=== PATIENT | female | born 1945 | race Hispanic/Latino ===

== ENCOUNTER 2018-07-07 09:20 | Inpatient (IN) ==
[2018-06-26 11:37] LABS: Basophils # (Auto) 0 K/mcL (0.0-0.3); Basophils % (Auto) 0.7 % (0.0-2.0); Eosinophils # (Auto) 0.1 K/mcL (0.0-0.7); Eosinophils % (Auto) 2.2 % (0.0-7.0); Granulocytes % (Auto) 63.8 % (38.0-78.0); Lymphocytes # (Auto) 1.6 K/mcL (1.5-4.8); Lymphocytes % (Auto) 26.2 % (15.5-49.0); Mean Cell Volume 93.8 fL (80.0-100.0); Mean Corpuscular HGB Conc 34.1 g/dL (31.0-36.0); Monocytes # (Auto) 0.4 K/mcL (0.1-0.9); Monocytes % (Auto) 7.1 % (1.0-12.0); Platelet Count 259 K/mcL (140-440); RBC 4.12 M/mcL (4.00-5.20); Red Cell Distribution Width 12.7 % (11.5-14.5)
[2018-06-26 12:14] LABS: Blood Urea Nitrogen 14 mg/dl (8-23)
[2018-06-26 12:43] LABS: Appearance,Urine CLEAR; Bacteria,Urine 0 /hpf (0); Bilirubin,Urine NEG (NEG); Color,Urine COLORLESS; Glucose,Urine (UA) NEGATIVE (NEG); Leukocyte Esterase,Urine NEG /uL (NEG); Protein,Urine NEG (NEG); Specific Gravity,Urine 1.004 (1.000-1.035); Urine Blood 0.03 mg/dL (<0.03); Urine RBC < 1 /hpf (0-1); Urine Squamous Epithelial Cell < 1 /hpf (0-4); Urine Transitional Epi Cells < 1 /hpf (0-2); Urine WBC 1 /hpf (0-4); Urobilinogen,Urine NEG (NEG)
[~2018-07-07 09:20] MED LIST: ACETAMINOPHEN 500 MG TABLET PO SCH; CELECOXIB 200 MG CAPSULE PO SCH; PREGABALIN 75 MG CAPSULE PO SCH; ceFAZolin 1 GM VIAL IV SCH; oxyCODONE 10 MG TAB.ER.12H PO SCH
[2018-07-07] MEDS ORDERED: ROPIVACAINE HCL/PF 20 ML VIAL IJ ONE (11:35)
[2018-07-07] MEDS ORDERED: ONDANSETRON 4 MG/2 ML VIAL IV ONE (11:35)
[2018-07-07] MEDS ORDERED: TRANEXAMIC ACID 1,000 MG/10 ML VIAL IV ONE ×3 (11:35→14:16)
[2018-07-07] MEDS ORDERED: LIDOCAINE HCL/PF 100 MG/5 ML SYRINGE IV ONE (11:35)
[2018-07-07] MEDS ORDERED: PROPOFOL 200 MG/20 ML VIAL IV ONE (11:35)
[2018-07-07] MEDS ORDERED: fentaNYL 250 MCG/5 ML VIAL IV ONE (11:35)
[2018-07-07] MEDS ORDERED: DEXAMETHASONE 10 MG/ML VIAL IV ONE (11:35)
[2018-07-07] MEDS ORDERED: MIDAZOLAM 5 MG/5 ML VIAL IV ONE (11:35)
[2018-07-07] MEDS ORDERED: GENTAMICIN SULFATE 800 MG/20 ML VIAL IR ONE (12:03)
[2018-07-07] MEDS ORDERED: METOPROLOL TARTRATE 5 MG/5 ML VIAL IV PRN (12:51)
[2018-07-07] MEDS ORDERED: MEPERIDINE 25 MG/ML SYRINGE IV PRN (12:51)
[2018-07-07] MEDS ORDERED: PROMETHAZINE 25 MG/ML VIAL IV PRN (12:51)
[2018-07-07] MEDS ORDERED: IPRATROPIUM/ALBUTEROL 3 ML AMPUL.NEB NEB PRN (12:51)
[2018-07-07] MEDS ORDERED: ATROPINE SULFATE 0.4 MG/ML VIAL IV PRN (12:51)
[2018-07-07] MEDS ORDERED: NALOXONE HCL 0.4 MG/ML VIAL IV PRN (12:51)
[2018-07-07] MEDS ORDERED: ONDANSETRON 4 MG/2 ML VIAL IV PRN ×2 (12:51→13:59)
[2018-07-07] MEDS ORDERED: METHOCARBAMOL 1,000 MG/10 ML VIAL IV PRN (12:51)
[2018-07-07] MEDS ORDERED: ePHEDrine 50 MG/ML AMPUL IV PRN (12:51)
[2018-07-07] MEDS ORDERED: HYDROmorphone 2 MG/ML VIAL IV PRN ×2 (12:51→13:59)
[2018-07-07] MEDS ORDERED: FLUMAZENIL 0.1 MG/ML ML IV PRN (12:51)
[2018-07-07] MEDS ORDERED: diphenhydrAMINE 50 MG/ML VIAL IV PRN (12:51)
[2018-07-07] MEDS ORDERED: LACTATED RINGERS 1,000 ML IV SCH (13:00)
[2018-07-07] MEDS: fentaNYL 100 MCG/2 ML VIAL IV PRN ×3 (13:56→14:08)
--- NOTE | 2018-07-07 13:57 | Brief Operative Note ---
Date of procedure: 07/07/18 Pre-op diagnosis: left shoulder djd severe Post-op diagnosis: same Procedure: left tsa and bicep tenodesis Grafts/Implants: Yes Anesthesia: GETA Complications: none Surgeon: Vinay Bello Bond Underwriter: Michael Ramirez Estimated blood loss (cc): 101 Specimens Removed/Pathology: none sent Condition: stable Disposition: PACU
[2018-07-07] MEDS ORDERED: MAGNESIUM HYDROXIDE 30 ML ORAL.SUSP PO PRN (13:59)
[2018-07-07] MEDS ORDERED: FLEETS ADULT ENEMA PR PRN (13:59)
[2018-07-07] MEDS ORDERED: POLYETHYLENE GLYCOL 3350 17 GM PACKET PO PRN (13:59)
[2018-07-07] MEDS ORDERED: ACETAMINOPHEN 325 MG TABLET PO PRN (13:59)
[2018-07-07] MEDS ORDERED: BENZOCAINE/MENTHOL 1 LOZENGE PO PRN (13:59)
[2018-07-07] MEDS ORDERED: BISACODYL 10 MG SUPP.RECT PR PRN (13:59)
[2018-07-07] MEDS ORDERED: KETOROLAC 15 MG/ML VIAL IV PRN (13:59)
[2018-07-07] MEDS ORDERED: TRANEXAMIC ACID 1,000 MG/10 ML VIAL IV SCH (14:45)
--- NOTE | 2018-07-07 14:58 | XRay Report ---
CLINICAL INFORMATION: post-op COMPARISON: None. FINDINGS: Left shoulder prostheses is anatomically aligned. No osseous normality. Soft tissues swelling seen as expected IMPRESSION: Negative Interpreted and Authenticated by: Bishnu Jimenez 07/07/18
--- NOTE | 2018-07-07 15:02 | Operative Note ---
DATE OF OPERATION: 07/07/2018 PREOPERATIVE DIAGNOSIS: Left shoulder, left shoulder arthritis, severe with biceps tendinopathy. POSTOPERATIVE DIAGNOSIS: Left shoulder, left shoulder arthritis, severe with biceps tendinopathy post. PROCEDURE: Left total shoulder arthroplasty with biceps tenodesis. SURGEON: Vinay Bello MD PLANER TAILER: Michael Ramirez PA-C ANESTHESIA: General LMA anesthesia. COMPLICATIONS: None. ESTIMATED BLOOD LOSS: About 100 mL IMPLANTS: A 13 humeral stem, cementless as well as a 44 mm glenoid and 44 mm humeral head. DESCRIPTION OF PROCEDURE: The patient was brought to the operating room and put to sleep with general anesthesia. Once asleep, the patient had the left shoulder sterilely prepped and draped in the usual sterile fashion. Ioban was placed over the skin and isolated it from the operative field and sat in a beach chair position. A timeout was performed to confirm the operative site. Preop antibiotics and tranexamic acid had been given. Once done, we then made a deltopectoral approach in the shoulder. This was a 4 inch incision anteriorly. The deltoid was retracted laterally. Once done, we then brought in and retracted the conjoint tendon medially, used a Dunlap retractor to retract the deltoid. I then released the bicipital groove. I harvested the biceps tendon with a large spur within the groove. This was harvested and repaired to the pec major by roughening the bone and [id number] stitches using FiberWire. Once done we completed the repair of the biceps tendon. I used an osteotome to remove the muscle attachment. This was released as well as the interval. This was retracted medially with a suture. Once released, we then dislocated the humeral head and removed osteophytes around the humeral head. We made our cut at 135 degrees using the patient's anatomy. Once done, we irrigated thoroughly and then subluxed the head posteriorly. We then performed a 360 degree capsular release and released the remnants of the biceps tendon, placed a hole centrally in the glenoid and used a 44 mm glenoid. This seemed to fit very nicely. We irrigated thoroughly and then once done, we reamed up to the size for 44 and implanted the 44 baseplate with a small amount of cement within the glenoid. This was tapped into place. Excellent fixation was achieved after predrilling the holes. Once done, we then prepared the humeral head. This humeral head was then broached up to size 13. We trialed the size 13 with a standard 18 mm the best size was the 18 mm thick humeral head. The 21 seemed to be too tight with less than 50% translation after reattaching the subscap. With this test we went back to smaller, the 18 mm thickness and this was repaired, positioned on the final implant. The final stem, which was a 13 stem was impacted into this humerus. This was in 30 degrees of retroversion. Once done, we irrigated thoroughly and then prepared the bony fragment. The humeral head was 18 mm thick, 44 mm in diameter. This was impacted into place and the subscap was then repaired through drill holes and passing through the tendinous portion we were able to repair this back to the bone and repaired the interval. Once done, we irrigated thoroughly and this gave an excellent repair. We had 4 sutures through the bone that were passed through the tendinous portion that held this into position. The patient tolerated this well. No complications. This seemed to repair very nicely and gave excellent fixation. We irrigated thoroughly and closed the interval with absorbable #1 suture which was Stratafix and then closed the skin with 2-0 Vicryl and adhesive closure. The patient tolerated this well. A DonJoy sling was fitted and given to the patient. RBH:tr Job ID: [id number] Doc ID: [id number] Vinay Bello MD
[2018-07-07] MEDS: 0.45 % SODIUM CHLORIDE 1,000 ML IV SCH (16:50)
[2018-07-07] MEDS: 0.9 % SODIUM CHLORIDE 10 ML SYRINGE IV SCH ×2 (16:50→21:27)
[2018-07-07] MEDS: HYDROcodone/APAP 10/325MG TABLET PO PRN ×2 (17:13→21:32)
[2018-07-07] MEDS: ceFAZolin 1 GM VIAL IV SCH (18:50)
[2018-07-07] MEDS ORDERED: TEMAZEPAM 15 MG CAPSULE PO PRN (21:00)
[2018-07-07] MEDS ORDERED: SENNOSIDES 1 TABLET PO SCH (21:00)
[2018-07-07] MEDS: DOCUSATE SODIUM 100 MG CAPSULE PO SCH (21:26)
[2018-07-08] MEDS: 0.9 % SODIUM CHLORIDE 10 ML SYRINGE IV SCH (02:50)
[2018-07-08] MEDS: ceFAZolin 1 GM VIAL IV SCH (03:05)
[2018-07-08] MEDS: 0.45 % SODIUM CHLORIDE 1,000 ML IV SCH ×2 (04:54)
[2018-07-08] MEDS: HYDROcodone/APAP 10/325MG TABLET PO PRN (05:25)
--- NOTE | 2018-07-08 07:32 | Orthopedic Progress Note ---
Subjective Patient information: Note initiated : 07/08/18 at 7:31 am Service Date, if different from initiated Date: [] Patient: Eli Matthews 73 y/o F admitted on 07/07/18 for Left Total Shoulder Arthroplasty with . Chief Complaint: [Pt is stable this morning on post operative day 1 without any significant concerns or complaints. Patients vital signs have remained stable. Patients dressing is dry and is grossly intact from a neurovascular and motor standpoint. Patients 10 point ROS is otherwise negative. ] Objective Vital signs: Vital Signs Temp Pulse Resp BP BP Pulse Ox 07/08/18 06:43 97.4 F 84 16 134/79 96 07/08/18 03:12 97.5 F 80 14 129/73 94 07/08/18 00:00 97.4 F 81 14 131/80 94 07/07/18 20:06 97.4 F 87 14 120/75 94 07/07/18 17:13 152/84 99 07/07/18 16:13 138/81 99 07/07/18 16:00 159/82 100 07/07/18 15:43 144/82 97 07/07/18 14:44 154/84 100 07/07/18 14:32 157/74 98 07/07/18 14:30 81 07/07/18 14:21 97.6 F 81 14 155/85 99 07/07/18 14:11 78 15 149/74 100 07/07/18 13:56 97.2 F 80 15 138/82 100 07/07/18 13:51 82 16 139/76 100 07/07/18 13:46 71 16 136/69 100 07/07/18 13:41 96.5 F L 72 18 136/87 100 07/07/18 11:11 101/53 95 07/07/18 10:55 101/53 95 07/07/18 10:40 93/57 93 07/07/18 10:25 88/55 93 07/07/18 10:11 88/53 91 07/07/18 10:00 98.1 F 86 18 133/81 97 Intake and Output 07/07/18 07/08/18 07/08/18 21:59 05:59 13:59 Intake Total 650 / 650 1550 / 1550 Output Total 1350 / 1350 700 / 700 Balance -700 / -700 850 / 850 Intake: IV 1000 / 1000 Sodium Chloride 0.45% 1,000 ml 1000 / 1000 @ 100 mls/hr IV .Q10H STEVE Rx#: [id number] Oral 650 / 650 550 / 550 Output: Void Amount 1350 / 1350 700 / 700 Other: Urine Appearance Clear Clear Urine Color Bright Yellow Straw Urine Odor Normal Normal # Voids 1 Weight 177 lb 8 oz Intake & Output: Intake & Output 07/07/18 07/08/18 07/08/18 21:59 05:59 13:59 Intake Total 650 / 650 1550 / 1550 Output Total 1350 / 1350 700 / 700 Balance -700 / -700 850 / 850 Weight 177 lb 8 oz Intake: IV 1000 / 1000 Sodium Chloride 0.45% 1,000 ml 1000 / 1000 @ 100 mls/hr IV .Q10H STEVE Rx#: [id number] Oral 650 / 650 550 / 550 Output: Void Amount 1350 / 1350 700 / 700 Other: Urine Appearance Clear Clear Urine Color Bright Yellow Straw Urine Odor Normal Normal # Voids 1 Incision: Yes healing Incision clean and dry: Yes Dressing: Yes clean Weight bearing status: full Neurological exam IM: Yes motor sensory intact, Yes neurovascular intact Extremities exam IM: Yes neurovascular intact - Labs CBC & BMP: 06/26/18 09:32 06/26/18 09:32 Labs: 06/26/18 09:32 Hgb 13.2 Hct 38.7 Assessment and Plan (1) History of reverse total replacement of left shoulder joint The patient has been educated regarding dressing care, Physical Therapy recommendations, home exercises, restrictions, and follow up appointments. The patient has had all necessary DME prescribed. The patient has remained relatively stable during their hospital course.Leave Dermabond patch intact until followup Status: Acute
--- NOTE | 2018-07-08 07:34 | Discharge Summary ---
Ortho Discharge - TSA - Patient Instructions Diet: Regular Diet Activity: activity as tolerated, weight bearing as tolerated Total Shoulder Protocol: Leave immobilizer in place except for bathing and ROM. Abduction pillow. Continue to wear sling until seen by physician. Codman Pendulum : These exercises use momentum produced by your body to move your shoulder joint. Bend your knees and shift your weight to your front leg, then back, allowing your arm to swing in the same directions. Using the same technique, alternately shift your weight between your right and left legs, allowing your arm to swing from side to side. These exercises are also performed in counterclockwise and clockwise circular motions. Typically these exercises are performed several times per day, for a set number repetitions or minutes, such as 20 times in a row or 5 minutes at a time. Dressing Care: May shower in 2 days - Problem Maintenance (1) History of reverse total replacement of left shoulder joint Status: Acute - Follow Up Plan Follow Up Appointments: Michael Ramirez PA-C [Physician Change Of Address Clerk] - 07/24/18 10:00 am Disposition: Home, Self-Care Prognosis: Good Rehab Potential: Good I certify that the patient requires SNF services: No Overall status at discharge: patient is progressing back to baseline - Orders For Discharge Prescriptions: Docusate Sodium [Colace] 100 mg PO BID #60 cap HYDROcodone/APAP 10/325MG [Santee 10-325Mg] 1 - 2 tab PO Q4HP PRN #75 tab PRN Reason: Pain Level 3-6
[2018-07-08] MEDS: DOCUSATE SODIUM 100 MG CAPSULE PO SCH (09:01)
== END 2018-07-08 10:45 | disposition home or self-care (01) | DRG 483 ==
LOC: MEDSUR 10:00
PROVIDERS: ADMIT Orthopaedic Surgery; ATTEND Orthopaedic Surgery
CPT/HCPCS: 97161